=== PATIENT | female | born 1955 | race Caucasian/White ===

== ENCOUNTER 2021-02-01 17:16 | Observation (INO) ==
[2021-02-01] MEDS ORDERED: Ondansetron 4 MG/2 ML VIAL IVP ONE (17:42)
[2021-02-01 17:48] LABS: Bilirubin,Urine Negative (Negative); Blood,Urine Large (Negative); Clarity,Urine Cloudy (Clear); Color,Urine Yellow (Yellow); Glucose,Urine (UA) Normal (Normal); Ketones,Urine Negative (Negative); Leukocyte Esterase,Urine Moderate (Negative); Nitrite,Urine Positive (Negative); Protein,Urine >=300 mg/dL (Neg-Trace); Specific Gravity,Urine 1.025 (1.010-1.025); Urobilinogen,Urine Normal (Normal)
[2021-02-01] MEDS: 0.9 % Sodium Chloride 1,000 ML IVC SCH ×3 (17:49→20:41)
[2021-02-01 17:55] LABS: RBC,Urine 30-50 per hpf (0-3); WBC,Urine TNTC per hpf (0-3)
[2021-02-01 17:56] LABS: Bacteria,Urine Many per hpf (None-Few)
[2021-02-01 18:13] LABS: Basophils % 0.1 %; Hematocrit 36.7 % (35.3-44.9); Hemoglobin 12.4 g/dL (11.5-15.4); Immature Granulocytes % 0.6 % (0-4); Lymphocytes # 0.4 K/mcL (0.6-4.6); Lymphocytes % 3.7 %; Mean Corpuscular HGB Conc 33.8 g/dL (31.6-35.5); Mean Corpuscular Hemoglobin 29.7 pg (28.0-33.3); Mean Corpuscular Volume 87.8 fL (83.0-100.0); Mean Platelet Volume 13.1 fL (9.4-12.4); Monocytes # 0.7 K/mcL (0.0-1.3); Monocytes % 6.5 %; Neutrophils # 9.2 K/mcL (1.6-8.9); Red Blood Count 4.18 M/mcL (3.82-4.97); Red Cell Distribution Width 13.3 % (11.5-14.5); Segmented Neutrophils % 89.1 %; White Blood Count 10.3 K/mcL (4.3-11.1)
[2021-02-01 18:15] LABS: Platelet Count 61 K/mcL (140-400)
[2021-02-01 18:28] LABS: Alanine Aminotransferase 17 Units/L (7-52); Albumin 3.5 g/dL (3.5-5.7); Albumin/Globulin Ratio 1.3 (1.1-2.2); Alkaline Phosphatase 57 Units/L (34-104); Aspartate Amino Transferase 24 Units/L (13-39); BUN/Creatinine Ratio 15 (6-26); Bilirubin,Direct 0.3 mg/dL (0.0-0.2); Bilirubin,Indirect 1.1 mg/dL (0.0-1.0); Bilirubin,Total 1.4 mg/dL (0.3-1.0); Blood Urea Nitrogen 17 mg/dL (8-23); Calcium 8.6 mg/dL (8.6-10.3); Carbon Dioxide 24 mEq/L (23-29); Chloride 104 mEq/L (98-107); Ethanol < 10 mg/dL (Less than 10); Globulin 2.7 g/dL (2.4-3.5); Glucose 145 mg/dL (70-105); Lipase 7 Units/L (11-82); Osmolality,Calculated 288 (280-300); Potassium 3.5 mEq/L (3.5-5.1); Sodium 137 mEq/L (136-145); Total Protein 6.2 g/dL (6.4-8.9); eGFR For African Americans 57 (> 60); eGFR For Non-African Americans 47 (> 60)
[2021-02-01 18:46] LABS: Troponin I < 0.03 ng/mL (< 0.04)
[2021-02-01] MEDS ORDERED: Naloxone 0.4 MG/ML INJ IVP PRN (20:22)
[2021-02-01] MEDS ORDERED: Ondansetron ODT 4 MG TAB.RAPDIS SL PRN (20:22)
[2021-02-01] MEDS: Acetaminophen 325 MG TABLET PO PRN (22:12)
[2021-02-02] MEDS: Acetaminophen 325 MG TABLET PO PRN (02:45)
[2021-02-02] MEDS ORDERED: Acetaminophen 325 MG TABLET PO ONE (02:47)
[2021-02-02] MEDS: 0.9 % Sodium Chloride 1,000 ML IVC SCH (02:49)
[2021-02-02 03:08] LABS: Basophils % 0.2 %; Hematocrit 34.7 % (35.3-44.9); Hemoglobin 11.6 g/dL (11.5-15.4); Immature Granulocytes % 0.5 % (0-4); Lymphocytes # 0.4 K/mcL (0.6-4.6); Lymphocytes % 5.9 %; Mean Corpuscular HGB Conc 33.4 g/dL (31.6-35.5); Mean Corpuscular Hemoglobin 29.4 pg (28.0-33.3); Mean Corpuscular Volume 87.8 fL (83.0-100.0); Monocytes # 0.4 K/mcL (0.0-1.3); Neutrophils # 5.1 K/mcL (1.6-8.9); Red Blood Count 3.95 M/mcL (3.82-4.97); Red Cell Distribution Width 13.4 % (11.5-14.5); Segmented Neutrophils % 86.4 %; White Blood Count 5.9 K/mcL (4.3-11.1)
[2021-02-02 03:11] LABS: Platelet Count 41 K/mcL (140-400)
[2021-02-02 03:41] LABS: BUN/Creatinine Ratio 14 (6-26); Blood Urea Nitrogen 14 mg/dL (8-23); Calcium 8.1 mg/dL (8.6-10.3); Carbon Dioxide 21 mEq/L (23-29); Chloride 108 mEq/L (98-107); Glucose 121 mg/dL (70-105); Osmolality,Calculated 290 (280-300); Potassium 3.5 mEq/L (3.5-5.1); Sodium 139 mEq/L (136-145); eGFR For African Americans > 60 (> 60); eGFR For Non-African Americans 54 (> 60)
[2021-02-02] MEDS ORDERED: cefTRIAXone 1,000 MG in 0.9 % Sodium Chloride Mini Bag 100 ML IVPB SCH (09:00)
[2021-02-02] MEDS ORDERED: 0.9 % Sodium Chloride 1,000 ML ONE (09:16)
[2021-02-02] MEDS ORDERED: Sulfamethoxazole/Trimeth 10 ML in D5% in Water 500 ML IVPB SCH (09:20)
[2021-02-02 09:53] LABS: ABG Base Excess -5 mEq/L (-2 to 3); ABG HCO3 18 mEq/L (21-27); ABG Oxygen Saturation 92 % (95-98); ABG PCO2 28 mmHg (35-45); ABG PH 7.43 pH Units (7.32-7.45); ABG PO2 60 mmHg (85-104); ABG TCO2 19 mEq/L (20-26)
[2021-02-02 11:15] LABS: Amphetamine Screen,Urine Negative ng/mL (Cutoff=1000); Barbiturate Screen,Urine Negative ng/mL (Cutoff=200); Benzodiazepines Screen,Urine Negative ng/mL (Cutoff=200); Cannabinoid Screen,Urine Negative ng/mL (Cutoff = 50); Cocaine Screen,Urine Negative ng/mL (Cutoff= 300); Opiate Screen,Urine Negative ng/mL (Cutoff=300); Phencyclidine Screen,Urine Negative ng/mL (Cutoff=25)
[2021-02-02 11:36] LABS: Acinetobacter baumannii by PCR Not Detected (Not Detect); Candida albicans by PCR Not Detected (Not Detect); Candida glabrata by PCR Not Detected (Not Detect); Candida krusei by PCR Not Detected (Not Detect); Candida parapsilosis by PCR Not Detected (Not Detect); Candida tropicalis by PCR Not Detected (Not Detect); Enterobacter cloacae Cmplx PCR Not Detected (Not Detect); Enterococcus by PCR Not Detected (Not Detect); Escherichia coli by PCR Not Detected (Not Detect); Klebsiella oxytoca by PCR Not Detected (Not Detect); Klebsiella pneumoniae by PCR DETECTED (Not Detect); Proteus by PCR Not Detected (Not Detect); Pseudomonas aeruginosa by PCR Not Detected (Not Detect); Serratia marcescens by PCR Not Detected (Not Detect); Staphylococcus aureus by PCR Not Detected (Not Detect); Staphylococcus by PCR Not Detected (Not Detect); Streptococcus agalactiae(B)PCR Not Detected (Not Detect); Streptococcus by PCR Not Detected (Not Detect); Streptococcus pneumoniae PCR Not Detected (Not Detect); Streptococcus pyogenes (A) PCR Not Detected (Not Detect)
[2021-02-02] MEDS ORDERED: Vancomycin 1,250 MG/262.5 ML IV.SOLN IVPB SCH (12:00)
[2021-02-02 12:22] LABS: Adenovirus Not Detected (Not Detect); Bordetella Pertussis Not Detected (Not Detect); Chlamydophila pneumoniae Not Detected (Not Detect); Coronavirus 229E Not Detected (Not Detect); Coronavirus HKU1 Not Detected (Not Detect); Coronavirus NL63 Not Detected (Not Detect); Coronavirus OC43 Not Detected (Not Detect); Human Metapneumovirus Not Detected (Not Detect); Human Rhinovirus/Enterovirus Not Detected (Not Detect); Influenza A Subtype 2009 H1 Not Detected (Not Detect); Influenza B Not Detected (Not Detect); Mycoplasma pneumoniae Not Detected (Not Detect); Parainfluenza Virus 1 Not Detected (Not Detect); Parainfluenza Virus 2 Not Detected (Not Detect); Parainfluenza Virus 3 Not Detected (Not Detect); Parainfluenza Virus 4 Not Detected (Not Detect); Respiratory Syncytial Virus Not Detected (Not Detect); SARS-CoV-2 Not Detected (Not Detect)
[2021-02-02] MEDS ORDERED: Acetaminophen IV 1,000 MG/100 ML BAG IVPB ONE (13:40)
[2021-02-02] MEDS ORDERED: Gentamicin 360 MG in 0.9 % Sodium Chloride 100 ML IVPB SCH (14:00)
[2021-02-02] MEDS ORDERED: 0.9 % Sodium Chloride 1,000 ML IVC SCH (14:15)
[2021-02-02 14:43] VITALS: BP 102/58
[2021-02-02] MEDS ORDERED: *HR* Promethazine 25 MG/ML VIAL IM ONE (14:47)
[2021-02-02] MEDS ORDERED: Meropenem 1,000 MG in Water for inj. (sterile) 20 ML IVP SCH (16:00)
[2021-02-02] MEDS ORDERED: Meropenem 1,000 MG in 0.9 % Sodium Chloride Mini Bag 100 ML IVPB SCH (16:00)
== END 2021-02-02 17:28 | disposition short-term general hospital (02) ==
LOC: EMEROOPIK 17:16 → INPPIK 17:16
PROVIDERS: ADMIT Internal Medicine; ATTEND Internal Medicine

== ENCOUNTER 2021-05-15 12:34 | Inpatient (IN) ==
[2021-05-15] MEDS ORDERED: Acetaminophen 325 MG TABLET PO ONE (12:36)
[2021-05-15] MEDS ORDERED: Ondansetron 4 MG/2 ML VIAL IVP ONE (12:36)
[2021-05-15] MEDS: 0.9 % Sodium Chloride 1,000 ML IVC ONE ×2 (12:47→13:23)
[2021-05-15 13:05] LABS: Basophils % 0.1 %; Hematocrit 38.5 % (35.3-44.9); Hemoglobin 12.8 g/dL (11.5-15.4); Immature Granulocytes % 0.5 % (0-4); Lymphocytes # 0.4 K/mcL (0.6-4.6); Lymphocytes % 5.5 %; Mean Corpuscular HGB Conc 33.2 g/dL (31.6-35.5); Mean Corpuscular Hemoglobin 29.4 pg (28.0-33.3); Mean Corpuscular Volume 88.3 fL (83.0-100.0); Mean Platelet Volume 11.9 fL (9.4-12.4); Monocytes # 0.4 K/mcL (0.0-1.3); Neutrophils # 6.9 K/mcL (1.6-8.9); Red Blood Count 4.36 M/mcL (3.82-4.97); Red Cell Distribution Width 13.5 % (11.5-14.5); Segmented Neutrophils % 88.9 %; White Blood Count 7.8 K/mcL (4.3-11.1)
[2021-05-15] MEDS ORDERED: Meropenem 1,000 MG in 0.9 % Sodium Chloride Mini Bag 100 ML IVPB ONE (13:09)
[2021-05-15] MEDS ORDERED: 0.9 % Sodium Chloride 1,000 ML IVC ONE (13:12)
[2021-05-15] MEDS ORDERED: 0.9 % Sodium Chloride 500 ML IVC ONE (13:12)
[2021-05-15 13:14] LABS: Platelet Count 65 K/mcL (140-400)
[2021-05-15 13:19] LABS: Bilirubin,Urine Negative (Negative); Blood,Urine Large (Negative); Clarity,Urine Turbid (Clear); Color,Urine Yellow (Yellow); Glucose,Urine (UA) Normal (Normal); Ketones,Urine Trace mg/dL (Negative); Leukocyte Esterase,Urine Small (Negative); Nitrite,Urine Positive (Negative); PH,Urine 5.5 pH Units (5.0-8.0); Protein,Urine >=300 mg/dL (Neg-Trace); Specific Gravity,Urine >= 1.030 (1.010-1.025); Urobilinogen,Urine Normal (Normal)
[2021-05-15 13:30] LABS: Bacteria,Urine Present per hpf (None-Few); RBC,Urine Present per hpf (0-3); WBC,Urine TNTC per hpf (0-3)
[2021-05-15 13:31] LABS: Squamous Epithelial Cell,Urine Present per hpf (None-Few)
[2021-05-15 13:37] LABS: Alanine Aminotransferase 9 Units/L (7-52); Albumin 3.3 g/dL (3.5-5.7); Albumin/Globulin Ratio 1.2 (1.1-2.2); Alkaline Phosphatase 49 Units/L (34-104); Aspartate Amino Transferase 18 Units/L (13-39); BUN/Creatinine Ratio 17 (6-26); Bilirubin,Total 1.3 mg/dL (0.3-1.0); Blood Urea Nitrogen 27 mg/dL (8-23); Calcium 8.4 mg/dL (8.6-10.3); Carbon Dioxide 25 mEq/L (23-29); Chloride 104 mEq/L (98-107); Creatine Kinase 373 Units/L (30-223); Globulin 2.8 g/dL (2.4-3.5); Glucose 165 mg/dL (70-105); Magnesium 1.6 mg/dL (1.6-2.6); Osmolality,Calculated 293 (280-300); Potassium 3.7 mEq/L (3.5-5.1); Sodium 137 mEq/L (136-145); Total Protein 6.1 g/dL (6.4-8.9); eGFR For African Americans 40 (> 60); eGFR For Non-African Americans 33 (> 60)
[2021-05-15 13:41] LABS: Troponin I < 0.03 ng/mL (< 0.04)
[2021-05-15] MEDS ORDERED: Naloxone 0.4 MG/ML INJ IVP PRN (15:35)
[2021-05-15] MEDS ORDERED: MOM Conc 10 ML UD.LIQ PO PRN (15:35)
[2021-05-15] MEDS ORDERED: Mag Hydrox/Al Hydrox/Simeth 30 ML UDC PO PRN (15:35)
[2021-05-15] MEDS: 0.9 % Sodium Chloride 1,000 ML IVC SCH (16:35)
[2021-05-15] MEDS: Meropenem 1,000 MG in 0.9 % Sodium Chloride Mini Bag 100 ML IVPB SCH (17:49)
[2021-05-15] MEDS: Ondansetron 4 MG/2 ML VIAL IVP PRN (18:25)
[2021-05-15] MEDS ORDERED: Acetaminophen 650 MG RECTAL SUPP RC ONE (18:56)
[2021-05-15] MEDS ORDERED: 0.9 % Sodium Chloride 500 ML IVC PRN (19:17)
[2021-05-15] MEDS ORDERED: *HR* Metoprolol 5 MG/5 ML VIAL IVP PRN (19:18)
[2021-05-16] MEDS: 0.9 % Sodium Chloride 1,000 ML IVC SCH ×2 (00:42→14:55)
[2021-05-16] MEDS ORDERED: Acetaminophen 650 MG RECTAL SUPP RC ONE (02:45)
[2021-05-16] MEDS ORDERED: *HR* Metoprolol 5 MG/5 ML VIAL IVP ONE (02:47)
[2021-05-16] MEDS: Meropenem 1,000 MG in 0.9 % Sodium Chloride Mini Bag 100 ML IVPB SCH (05:57)
[2021-05-16 07:11] LABS: Basophils % 0.2 %; Eosinophils % 0.2 %; Hematocrit 31.3 % (35.3-44.9); Hemoglobin 10.1 g/dL (11.5-15.4); Immature Granulocytes % 2.5 % (0-4); Lymphocytes # 0.3 K/mcL (0.6-4.6); Lymphocytes % 6.8 %; Mean Corpuscular HGB Conc 32.3 g/dL (31.6-35.5); Mean Corpuscular Hemoglobin 29.3 pg (28.0-33.3); Mean Corpuscular Volume 90.7 fL (83.0-100.0); Mean Platelet Volume 12.9 fL (9.4-12.4); Monocytes # 0.3 K/mcL (0.0-1.3); Monocytes % 6.1 %; Neutrophils # 3.7 K/mcL (1.6-8.9); Red Blood Count 3.45 M/mcL (3.82-4.97); Red Cell Distribution Width 13.7 % (11.5-14.5); Segmented Neutrophils % 84.2 %; White Blood Count 4.4 K/mcL (4.3-11.1)
[2021-05-16 07:15] LABS: Platelet Count 47 K/mcL (140-400)
[2021-05-16 07:31] LABS: Calcium 7.7 mg/dL (8.6-10.3); Potassium 3.2 mEq/L (3.5-5.1)
[2021-05-16] MEDS ORDERED: Potassium Chloride Elixir 20 MEQ/15 ML UDC PO ONE ×2 (09:12→10:45)
[2021-05-16 09:32] LABS: Platelet Estimate Decreased (Normal)
[2021-05-16] MEDS: Ondansetron 4 MG/2 ML VIAL IVP PRN ×2 (10:29→23:10)
[2021-05-16] MEDS: Acetaminophen 325 MG TABLET PO PRN (11:10)
[2021-05-16] MEDS: Loratadine 10 MG TABLET PO SCH (11:10)
[2021-05-16] MEDS: Ertapenem 1,000 MG in 0.9 % Sodium Chloride Mini Bag 100 ML IVPB SCH (11:12)
[2021-05-17] MEDS: 0.9 % Sodium Chloride 1,000 ML IVC SCH (02:14)
[2021-05-17] MEDS: Acetaminophen 325 MG TABLET PO PRN (02:24)
[2021-05-17 07:30] LABS: Basophils % 0.3 %; Eosinophils # 0.1 K/mcL (0.0-0.6); Eosinophils % 1.6 %; Hematocrit 28.7 % (35.3-44.9); Hemoglobin 9.4 g/dL (11.5-15.4); Immature Granulocytes % 0.6 % (0-4); Lymphocytes # 0.5 K/mcL (0.6-4.6); Mean Corpuscular HGB Conc 32.8 g/dL (31.6-35.5); Mean Corpuscular Hemoglobin 29.5 pg (28.0-33.3); Mean Platelet Volume 12.7 fL (9.4-12.4); Monocytes # 0.3 K/mcL (0.0-1.3); Monocytes % 9.3 %; Red Blood Count 3.19 M/mcL (3.82-4.97); Red Cell Distribution Width 13.7 % (11.5-14.5); Segmented Neutrophils % 73.2 %; White Blood Count 3.2 K/mcL (4.3-11.1)
[2021-05-17 07:51] LABS: Calcium 7.7 mg/dL (8.6-10.3); Potassium 3.5 mEq/L (3.5-5.1)
[2021-05-17] MEDS: Ertapenem 1,000 MG in 0.9 % Sodium Chloride Mini Bag 100 ML IVPB SCH (07:55)
[2021-05-17] MEDS: Loratadine 10 MG TABLET PO SCH (07:55)
[2021-05-17 08:09] LABS: Neutrophils # 2.3 K/mcL (1.6-8.9)
[2021-05-17 08:10] LABS: Platelet Count 48 K/mcL (140-400)
[2021-05-17] MEDS: *HR* HYDROcodone/Acet 5/325 mg TABLET PO PRN (20:48)
[2021-05-18 08:13] LABS: Eosinophils # 0.1 K/mcL (0.0-0.6); Eosinophils % 2.5 %; Hematocrit 28.7 % (35.3-44.9); Hemoglobin 9.4 g/dL (11.5-15.4); Immature Granulocytes % 1.3 % (0-4); Lymphocytes # 0.5 K/mcL (0.6-4.6); Lymphocytes % 15.6 %; Mean Corpuscular HGB Conc 32.8 g/dL (31.6-35.5); Mean Corpuscular Hemoglobin 29.1 pg (28.0-33.3); Mean Corpuscular Volume 88.9 fL (83.0-100.0); Mean Platelet Volume 11.8 fL (9.4-12.4); Monocytes # 0.3 K/mcL (0.0-1.3); Monocytes % 9.2 %; Neutrophils # 2.2 K/mcL (1.6-8.9); Red Blood Count 3.23 M/mcL (3.82-4.97); Red Cell Distribution Width 13.7 % (11.5-14.5); Segmented Neutrophils % 71.4 %; White Blood Count 3.1 K/mcL (4.3-11.1)
[2021-05-18] MEDS: Ertapenem 1,000 MG in 0.9 % Sodium Chloride Mini Bag 100 ML IVPB SCH (08:20)
[2021-05-18] MEDS: *HR* HYDROcodone/Acet 5/325 mg TABLET PO PRN (08:21)
[2021-05-18] MEDS: Loratadine 10 MG TABLET PO SCH (08:22)
[2021-05-18 08:50] LABS: BUN/Creatinine Ratio 13 (6-26); Blood Urea Nitrogen 14 mg/dL (8-23); Carbon Dioxide 24 mEq/L (23-29); Chloride 106 mEq/L (98-107); Glucose 117 mg/dL (70-105); Osmolality,Calculated 286 (280-300); Potassium 3.4 mEq/L (3.5-5.1); Sodium 137 mEq/L (136-145); eGFR For African Americans > 60 (> 60); eGFR For Non-African Americans 52 (> 60)
[2021-05-18 08:53] LABS: Platelet Count 62 K/mcL (140-400)
[2021-05-18 23:41] VITALS: RESP 16
[2021-05-19] MEDS: Ertapenem 1,000 MG in 0.9 % Sodium Chloride Mini Bag 100 ML IVPB SCH (08:21)
[2021-05-19] MEDS: Loratadine 10 MG TABLET PO SCH (08:21)
[2021-05-19 10:54] VITALS: BP 114/76; PULSE 94; TEMP 97.9; O2SAT 97
== END 2021-05-19 11:46 | disposition other institution (70) | DRG 871 ==
LOC: INPPIK 12:34 → EMEROOPIK 12:34 → INPPIK 15:52
PROVIDERS: ADMIT Family Medicine; ATTEND Family Medicine

== ENCOUNTER 2021-05-17 18:11 | Inpatient (IN) ==
[2021-05-19] MEDS ORDERED: Acetaminophen 325 MG TABLET PO PRN (10:32)
[2021-05-20] MEDS: Loratadine 10 MG TABLET PO SCH (08:05)
[2021-05-20] MEDS: Cholecalciferol (D-3) 1,000 UNIT (25MCG) TABLET PO SCH (08:05)
[2021-05-20] MEDS: Ertapenem 1,000 MG in 0.9 % Sodium Chloride Mini Bag 100 ML IVPB SCH (08:06)
[2021-05-20] MEDS: *HR* HYDROcodone/Acet 5/325 mg TABLET PO PRN ×2 (08:06→21:30)
[2021-05-20] MEDS: [UNRECOGNIZED DRUG - OTHER] PO SCH (09:58)
[2021-05-21] MEDS: [UNRECOGNIZED DRUG - OTHER] PO SCH (08:28)
[2021-05-21] MEDS: Cholecalciferol (D-3) 1,000 UNIT (25MCG) TABLET PO SCH (08:39)
[2021-05-21] MEDS: *HR* HYDROcodone/Acet 5/325 mg TABLET PO PRN (08:39)
[2021-05-21] MEDS: Loratadine 10 MG TABLET PO SCH (08:40)
[2021-05-21] MEDS: Ertapenem 1,000 MG in 0.9 % Sodium Chloride Mini Bag 100 ML IVPB SCH (10:15)
[2021-05-22] MEDS: [UNRECOGNIZED DRUG - OTHER] PO SCH (08:24)
[2021-05-22] MEDS: Ertapenem 1,000 MG in 0.9 % Sodium Chloride Mini Bag 100 ML IVPB SCH (08:26)
[2021-05-22] MEDS: Loratadine 10 MG TABLET PO SCH (08:27)
[2021-05-22] MEDS: Cholecalciferol (D-3) 1,000 UNIT (25MCG) TABLET PO SCH (08:27)
[2021-05-22 09:40] LABS: Basophils % 0.5 %; Eosinophils # 0.2 K/mcL (0.0-0.6); Eosinophils % 3.6 %; Hematocrit 33.4 % (35.3-44.9); Hemoglobin 10.7 g/dL (11.5-15.4); Immature Granulocytes % 4.6 % (0-4); Lymphocytes # 0.7 K/mcL (0.6-4.6); Lymphocytes % 16.4 %; Mean Corpuscular Hemoglobin 28.8 pg (28.0-33.3); Mean Corpuscular Volume 89.8 fL (83.0-100.0); Mean Platelet Volume 10.4 fL (9.4-12.4); Monocytes # 0.2 K/mcL (0.0-1.3); Monocytes % 5.1 %; Neutrophils # 2.9 K/mcL (1.6-8.9); Platelet Count 157 K/mcL (140-400); Red Blood Count 3.72 M/mcL (3.82-4.97); Red Cell Distribution Width 13.4 % (11.5-14.5); Segmented Neutrophils % 69.8 %; White Blood Count 4.1 K/mcL (4.3-11.1)
[2021-05-22 10:05] LABS: BUN/Creatinine Ratio 15 (6-26); Blood Urea Nitrogen 15 mg/dL (8-23); Calcium 8.9 mg/dL (8.6-10.3); Carbon Dioxide 28 mEq/L (23-29); Chloride 104 mEq/L (98-107); Glucose 118 mg/dL (70-105); Osmolality,Calculated 296 (280-300); Potassium 3.9 mEq/L (3.5-5.1); Sodium 142 mEq/L (136-145); eGFR For African Americans > 60 (> 60); eGFR For Non-African Americans 58 (> 60)
[2021-05-22] MEDS: *HR* HYDROcodone/Acet 5/325 mg TABLET PO PRN (20:11)
[2021-05-23] MEDS: [UNRECOGNIZED DRUG - OTHER] PO SCH (09:08)
[2021-05-23] MEDS: Ertapenem 1,000 MG in 0.9 % Sodium Chloride Mini Bag 100 ML IVPB SCH (09:15)
[2021-05-23] MEDS: Cholecalciferol (D-3) 1,000 UNIT (25MCG) TABLET PO SCH (09:16)
[2021-05-23] MEDS: Loratadine 10 MG TABLET PO SCH (09:17)
[2021-05-23] MEDS: *HR* HYDROcodone/Acet 5/325 mg TABLET PO PRN (20:38)
[2021-05-24] MEDS: Ertapenem 1,000 MG in 0.9 % Sodium Chloride Mini Bag 100 ML IVPB SCH (07:58)
[2021-05-24] MEDS: Cholecalciferol (D-3) 1,000 UNIT (25MCG) TABLET PO SCH (07:59)
[2021-05-24] MEDS: Loratadine 10 MG TABLET PO SCH (07:59)
[2021-05-24] MEDS: [UNRECOGNIZED DRUG - OTHER] PO SCH (07:59)
[2021-05-25] MEDS: [UNRECOGNIZED DRUG - OTHER] PO SCH (09:24)
[2021-05-25] MEDS: Cholecalciferol (D-3) 1,000 UNIT (25MCG) TABLET PO SCH (09:29)
[2021-05-25] MEDS: Ertapenem 1,000 MG in 0.9 % Sodium Chloride Mini Bag 100 ML IVPB SCH (09:29)
[2021-05-25] MEDS: Loratadine 10 MG TABLET PO SCH (09:29)
[2021-05-25] MEDS: *HR* HYDROcodone/Acet 5/325 mg TABLET PO PRN (20:22)
[2021-05-26] MEDS: Loratadine 10 MG TABLET PO SCH (10:43)
[2021-05-26] MEDS: Cholecalciferol (D-3) 1,000 UNIT (25MCG) TABLET PO SCH (10:43)
[2021-05-26] MEDS: Ertapenem 1,000 MG in 0.9 % Sodium Chloride Mini Bag 100 ML IVPB SCH (10:44)
[2021-05-26] MEDS: [UNRECOGNIZED DRUG - OTHER] PO SCH (10:44)
[2021-05-26 19:09] VITALS: O2SAT 95
[2021-05-26] MEDS: *HR* HYDROcodone/Acet 5/325 mg TABLET PO PRN (21:20)
[2021-05-27 06:56] LABS: Basophils % 0.6 %; Eosinophils # 0.2 K/mcL (0.0-0.6); Eosinophils % 3.4 %; Hematocrit 38.7 % (35.3-44.9); Hemoglobin 12.4 g/dL (11.5-15.4); Immature Granulocytes % 1.7 % (0-4); Lymphocytes # 1.2 K/mcL (0.6-4.6); Lymphocytes % 18.6 %; Mean Corpuscular Hemoglobin 28.4 pg (28.0-33.3); Mean Corpuscular Volume 88.6 fL (83.0-100.0); Monocytes # 0.4 K/mcL (0.0-1.3); Monocytes % 6.6 %; Neutrophils # 4.4 K/mcL (1.6-8.9); Platelet Count 201 K/mcL (140-400); Red Blood Count 4.37 M/mcL (3.82-4.97); Red Cell Distribution Width 13.8 % (11.5-14.5); Segmented Neutrophils % 69.1 %; White Blood Count 6.4 K/mcL (4.3-11.1)
[2021-05-27 07:22] LABS: BUN/Creatinine Ratio 20 (6-26); Blood Urea Nitrogen 21 mg/dL (8-23); Calcium 9.2 mg/dL (8.6-10.3); Carbon Dioxide 25 mEq/L (23-29); Chloride 104 mEq/L (98-107); Glucose 99 mg/dL (70-105); Osmolality,Calculated 287 (280-300); Potassium 4.4 mEq/L (3.5-5.1); Sodium 137 mEq/L (136-145); eGFR For African Americans > 60 (> 60); eGFR For Non-African Americans 52 (> 60)
[2021-05-27] MEDS: Cholecalciferol (D-3) 1,000 UNIT (25MCG) TABLET PO SCH (10:01)
[2021-05-27] MEDS: Ertapenem 1,000 MG in 0.9 % Sodium Chloride Mini Bag 100 ML IVPB SCH (10:01)
[2021-05-27] MEDS: Loratadine 10 MG TABLET PO SCH (10:01)
[2021-05-27] MEDS: [UNRECOGNIZED DRUG - OTHER] PO SCH (10:04)
[2021-05-27] MEDS ORDERED: Fluconazole 150 MG TABLET PO ONE (12:00)
[2021-05-27] MEDS: *HR* HYDROcodone/Acet 5/325 mg TABLET PO PRN (20:40)
[2021-05-28 07:06] VITALS: BP 100/68; PULSE 92; RESP 19; TEMP 97.7
[2021-05-28] MEDS: Cholecalciferol (D-3) 1,000 UNIT (25MCG) TABLET PO SCH (10:19)
[2021-05-28] MEDS: Loratadine 10 MG TABLET PO SCH (10:20)
[2021-05-28] MEDS: Ertapenem 1,000 MG in 0.9 % Sodium Chloride Mini Bag 100 ML IVPB SCH (10:21)
[2021-05-28] MEDS: [UNRECOGNIZED DRUG - OTHER] PO SCH (10:24)
== END 2021-05-28 16:00 | disposition home or self-care (01) | DRG 690 ==
LOC: INPPIK 05-19 10:58 → UNDODISIN 05-19 11:30
PROVIDERS: ADMIT Internal Medicine; ATTEND Internal Medicine